=== PATIENT | male | born 1930 | race Caucasian/White ===

== ENCOUNTER 2018-08-26 07:33 | Emergency (ER) | payer MEDICARE, OTHER ==
[~2018-08-26] VITALS: Ht 172.7 cm; Wt 67.2 kg
[2018-08-26 07:39] VITALS: Ht 172.7 cm; Wt 67.2 kg
[2018-08-26] MEDS ORDERED: LIDOCAINE/MYLANTA 40 ML BTL PO STA (08:11)
[2018-08-26] MEDS ORDERED: PANTOPRAZOLE (EC) 40 MG TAB PO ONE (08:30)
[2018-08-26] MEDS ORDERED: ONDA4TAB14 PO (10:24)
[2018-08-26] MEDS ORDERED: PANT40TA3 PO (10:24)
--- NOTE | 2018-08-26 10:26 | ERD ---
ER Documentation Chief Complaint Chief Complaint abd pain , onset 0500 am , denies n/v/d HPI Patient is an 88-year-old male with hypertension who presents with abdominal pain. The patient has epigastric abdominal pain which started at 5 AM. It has been constant and dull. He describes it as a 5 out of 10. He has had no treatment as of yet. He does have a primary doctor at [facility]. ROS All systems reviewed and are negative except as per history of present illness. Medications Home Meds Active Scripts Ondansetron (Ondansetron Odt) 4 Mg Tab.rapdis, 4 MG PO Q6H PRN for NAUSEA AND/OR VOMITING, #10 TAB Prov:ASHLI LAKE MD 08/26/18 Pantoprazole* (Protonix*) 40 Mg Tablet.dr, 40 MG PO DAILY, #20 TAB Prov:ASHLI LAKE MD 08/26/18 PMhx/Soc History of Surgery: Yes (hernia, ) Anesthesia Reaction: No Hx Neurological Disorder: No Hx Respiratory Disorders: No Hx Cardiac Disorders: Yes (HTN, near syncopal episode) Hx Miscellaneous Medical Probl: Yes (tremors) Hx Alcohol Use: No Hx Substance Use: No Hx Tobacco Use: No Smoking Status: Never smoker FmHx Family History: No diabetes Physical Exam Vitals Vital Signs Date Temp Pulse Resp B/P (MAP) Pulse Ox O2 O2 Flow FiO2 Time Delivery Rate 08/26/18 57 21 156/87 100 Room Air 10:58 (110) 08/26/18 60 17 176/87 100 Room Air 08:03 (116) 08/26/18 97.7 65 18 176/86 98 07:39 (116) Physical Exam Const: No acute distress Head: Atraumatic Eyes: Normal Conjunctiva ENT: Normal External Ears, Nose and Mouth. Neck: Full range of motion. No meningismus. Resp: Clear to auscultation bilaterally Cardio: Regular rate and rhythm, no murmurs Abd: Soft, mild epigastric tenderness to palpation without rebound or guarding Skin: No petechiae or rashes Back: No midline or flank tenderness Ext: No cyanosis, or edema Neur: Awake and alert Psych: Normal Mood and Affect Result Diagram: 08/26/18 0808/26/18 0803 Results 24 hrs Laboratory Tests Test 2/17/19 08:03 White Blood Count 4.5 10^3/ul Red Blood Count 4.60 10^6/ul Hemoglobin 14.1 g/dl Hematocrit 42.6 % Mean Corpuscular Volume 92.6 fl Mean Corpuscular Hemoglobin 30.7 pg Mean Corpuscular Hemoglobin Concent 33.1 g/dl Red Cell Distribution Width 12.8 % Platelet Count 77 10^3/UL Mean Platelet Volume 12.4 fl Immature Granulocytes % 0.400 % Neutrophils % 47.1 % Lymphocytes % 31.0 % Monocytes % 11.0 % Eosinophils % 10.3 % Basophils % 0.2 % Nucleated Red Blood Cells % 0.0 /100WBC Immature Granulocytes # 0.020 10^3/ul Neutrophils # 2.1 10^3/ul Lymphocytes # 1.4 10^3/ul Monocytes # 0.5 10^3/ul Eosinophils # 0.5 10^3/ul Basophils # 0.0 10^3/ul Nucleated Red Blood Cells # 0.0 10^3/ul Urine Color STRAW Urine Clarity CLEAR Urine pH 7.0 Urine Specific [place] 1.010 Urine Ketones NEGATIVE mg/dL Urine Nitrite NEGATIVE mg/dL Urine Bilirubin NEGATIVE mg/dL Urine Urobilinogen NEGATIVE mg/dL Urine Leukocyte Esterase NEGATIVE Autumn/ul Urine Hemoglobin NEGATIVE mg/dL Urine Glucose 1+ mg/dL Urine Total Protein NEGATIVE mg/dl Sodium Level 142 mmol/L Potassium Level 4.1 mmol/L Chloride Level 105 mmol/L Carbon Dioxide Level 30 mmol/L Anion Gap 7 Blood Urea Nitrogen 22 mg/dl Creatinine 1.22 mg/dl Est Glomerular Filtrat Rate mL/min mL/min Glucose Level 115 mg/dl Calcium Level 9.3 mg/dl Total Bilirubin 1.1 mg/dl Direct Bilirubin 0.00 mg/dl Indirect Bilirubin 1.1 mg/dl Aspartate Amino Transf (AST/SGOT) 37 IU/L Alanine Aminotransferase (ALT/SGPT) 43 IU/L Alkaline Phosphatase 87 IU/L Troponin I < 0.012 ng/ml Total Protein 7.0 g/dl Albumin 4.3 g/dl Globulin 2.70 g/dl Albumin/Globulin Ratio 1.59 Lipase 196 U/L Current Medications Medications Dose Sig/Payal Start Time Status Last (Trade) Ordered Route PRN Stop Time Admin Dose Reason Admin 40 ml ONCE STAT 08/26/18 DC 08/26/18 Miscellaneous PO 08:11 08:18 Medication 08/26/18 08:12 (Gi Cocktail (2)) 40 mg ONCE ONCE 08/26/18 DC 08/26/18 Pantoprazole PO 08:30 08:18 (Protonix 08/26/18 08:31 Tab) Procedures/MDM EKG read by me: Rate/Rhythm: First-degree bradycardia rate of 59 Intervals: Normal Impression: First-degree bradycardia at a rate of 59 CT negative per radiology. Ultrasound negative per radiology. Patient is a 88-year-old male with hypertension who presents with abdominal pain. Laboratory studies were basically normal. CT scan was negative. Ultrasound shows no signs of cholecystitis. At this point I doubt: Cystitis, pa ncreatitis, appendicitis, or bowel obstruction. I believe outpatient management is appropriate at this time. I doubt acute coronary syndrome. The patient will need close follow-up with his primary doctor within 24 hours. He can return sooner for any worsening symptoms. Departure Diagnosis: Primary Impression: Abdominal pain Abdominal location: epigastric Qualified Codes: R10.13 - Epigastric pain Condition: Fair Patient Instructions: Abdominal Pain Referrals: Your doctor at [facility] Additional Instructions: FOLLOW UP WITH YOUR PRIMARY CARE PHYSICIAN TOMORROW.Return to this facility if you are not improving as expected. ASHLI LAKE MD Aug 26, 2018 10:25
[2018-08-26 10:58] VITALS: BP 156/87; PULSE 57; RESP 21
== END 2018-08-26 10:59 | disposition home or self-care (01) ==
LOC: E/R 07:33
DX: R10.13 Epigastric pain (principal); I10 Essential (primary) hypertension
CPT/HCPCS: 36415; 74176; 76705; 80053; 81003; 83690; 84484; 85025; 93005